=== PATIENT | female | born 2000 | race Caucasian/White ===

== ENCOUNTER 2020-12-17 23:06 | Emergency (ER) | payer MEDICAID ==
[~2020-12-17] VITALS: Ht 160 cm; Wt 69.9 kg
[2020-12-17 23:10] VITALS: BP 118/88
--- NOTE | 2020-12-17 23:33 | NUR ---
See patient assessment for more information.
[2020-12-17] MEDS ORDERED: NAPR-54 PO (23:55)
[2020-12-18 01:34] VITALS: BP 121/89
--- NOTE | 2020-12-18 01:34 | NUR ---
Patient discharged with v/s stable. Written and verbal after care instructions given and explained. Patient verbalized understanding. Ambulatory with to car. All questions addressed prior to discharge. Advised to follow up with PMD.
== END 2020-12-18 01:34 | disposition home or self-care (01) ==
LOC: MED 23:06
DX: R07.89 Other chest pain (principal)
CPT/HCPCS: 71045; 81002; 81025; 93005; 99283